=== PATIENT | female | born 1930 | race Caucasian/White ===

== ENCOUNTER → 2017-02-15 | Outpatient (CLI) | payer MEDICARE, OTHER, MEDICAID ==
[~2017-02-15] MED LIST: BACITRACIN TOP; BASAGLAR K100 UNIT/1 SUBCUT; COLACE100 MG PO; GLUCOPHAGE500 MG PO; GLUCOTROL XL10 MG PO; GLUCOTROL XL5 MG PO; HYDROCHLOROTH12.5 MG PO; INVOKANA100 MG PO; JANUVIA50 MG PO; LOPRESSOR25 MG PO; NORVASC5 MG PO; NOVOLIN R100 UNIT/1 SUBCUT; PRINIVIL10 MG PO; PRINIVIL20 MG PO; REFRESH PLUS1 EACH EYEBOTH; TYLENOL325 MG PO; ZESTORETIC 20-1 EACH PO
== END | disposition short-term general hospital (02) ==
LOC: CLCARD 09:27
DX: I12.9 Hypertensive chronic kidney disease with stage 1 through stage 4 chronic kidney disease, or unspecified chronic kidney disease (principal); E11.22 Type 2 diabetes mellitus with diabetic chronic kidney disease; N18.3 Chronic kidney disease, stage 3 (moderate); I87.2 Venous insufficiency (chronic) (peripheral); R60.0 Localized edema; Z86.79 Personal history of other diseases of the circulatory system